=== PATIENT | female | born 1990 | race American Indian/Alaskan Native ===

== ENCOUNTER 2017-04-20 10:17 | Outpatient (CLI) | payer OTHER, MEDICAID ==
[2017-04-20] MEDS ORDERED: LACTATED RINGERS 500 ML IV ONE (11:30)
[2017-04-20] MEDS ORDERED: MORPHINE IV ONE (11:36)
[2017-04-20 11:40] LABS: Bilirubin,Urine NEG (Negative); Blood,Urine NEG (Negative); Ketones,Urine 20 mg/dL (Negative); Leukocyte Esterase,Urine TR (Negative); Mucus,Urine 2+ /HPF; Nitrite,Urine NEG (Negative); Urobilinogen,Urine < 2.0 mg/dL (<2.0)
== END 2017-04-20 13:06 | disposition home or self-care (01) ==
LOC: TRG 10:17
PROVIDERS: ATTEND Obstetrics & Gynecology
DX: O47.03 False labor before 37 completed weeks of gestation, third trimester (principal); Z3A.33 33 weeks gestation of pregnancy
CPT/HCPCS: 81001; J2270; J7120

== ENCOUNTER 2017-04-25 13:10 | Outpatient (CLI) | payer OTHER, MEDICAID ==
[2017-04-25] MEDS ORDERED: LACTATED RINGERS 500 ML IV ONE (13:44)
[2017-04-26 01:05] VITALS: BP 109/54
--- NOTE | 2017-04-26 08:20 | Ultrasound Report ---
ULTRASOUND BIOPHYSICAL PROFILE: History: well being Technique: Transabdominal ultrasound with Doppler interrogation. BABY A 2 - breathing movements 2 - movements 2 - posture and tone 2 - Qualitative amniotic fluid volume 8 - TOTAL SCORE OF POSSIBLE 8 Heart Rate (bpm) 135
--- NOTE | 2017-04-26 08:20 | Ultrasound Report ---
ULTRASOUND BIOPHYSICAL PROFILE: History: well being Technique: Transabdominal ultrasound with Doppler interrogation. BABY B 2 - breathing movements 2 - movements 2 - posture and tone 2 - Qualitative amniotic fluid volume 8 - TOTAL SCORE OF POSSIBLE 8 Heart Rate (bpm) 121
== END 2017-04-25 16:35 | disposition home or self-care (01) ==
LOC: TRG 13:10
PROVIDERS: ATTEND Obstetrics & Gynecology
DX: O47.03 False labor before 37 completed weeks of gestation, third trimester (principal); Z3A.33 33 weeks gestation of pregnancy
CPT/HCPCS: 76819

== ENCOUNTER 2017-05-08 19:23 | Outpatient (CLI) | payer OTHER, MEDICAID ==
[2017-05-08] MEDS ORDERED: TYLENOL PO ONE (20:32)
[2017-05-08 21:06] LABS: Basophils % (Auto) 0.4 % (0.0-1.8); Eosinophils % (Auto) 4.3 % (0.0-4.3); Hematocrit 35.5 % (30.3-42.9); Hemoglobin 12.1 gm/dl (10.1-14.3); Mean Corpuscular HGB Conc 34 % (30-34); Mean Corpuscular Hemoglobin 31 pg (28-32); Mean Corpuscular Volume 91 fl (79-97); Platelet Count 196 K/mm3 (140-440); Red Blood Count 3.89 M/mm3 (3.65-5.03); Red Cell Distribution Width 13.4 % (13.2-15.2); White Blood Count 9.9 K/mm3 (4.5-11.0)
[2017-05-08 21:21] LABS: Alanine Aminotransferase 9 units/L (7-56); Albumin 2.7 g/dL (3.9-5); Alkaline Phosphatase 132 units/L (35-129); Anion Gap 17 mmol/L; Blood Urea Nitrogen 3 mg/dL (7-17); Calcium 9.1 mg/dL (8.4-10.2); Carbon Dioxide 20 mmol/L (22-30); Chloride 103.6 mmol/L (98-107); Glucose 80 mg/dL (65-100); Potassium 3.7 mmol/L (3.6-5.0); Sodium 137 mmol/L (137-145); Total Protein 5.3 g/dL (6.3-8.2)
[2017-05-08 22:24] LABS: Bacteria,Urine 1+ /HPF (Negative); Bilirubin,Urine NEG (Negative); Blood,Urine NEG (Negative); Ketones,Urine 20 mg/dL (Negative); Leukocyte Esterase,Urine TR (Negative); Mucus,Urine FEW /HPF; Nitrite,Urine NEG (Negative); Urobilinogen,Urine < 2.0 mg/dL (<2.0)
--- NOTE | 2017-05-09 00:56 | Event Note ---
Date: 05/08/17 27 year old female at 35 weeks, 6 days gestation with twin presented to L&D triage complaining of headache after she took her new BP pill this afternoon. Patient states she was prescribed the medication for hypertension last week but did not take the first dose until this afternoon. Patient states she does not know the name of the medication. Patient states that she felt a headache about an hour after taking the medication. She states she has not taken any Tylenol for the headache yet. Patient denies visual disturbance, nausea or vomiting, abdominal or epigastric pain, edema, or any other symptoms. She reports both babies are moving well. She denies contractions, leaking of fluid or vaginal bleeding. She denies falls or abdominal trauma. Patient is well appearing, A&O, NAD. Afebrile. VSS. Preeclamptic labs negative. Abdomen soft, nontender, gravid. Reactive NST for baby A and reactive NST for baby B. No contractions noted or palpated. Cervix closed and thick. Patient was given Tylenol po while in triage and she states her headache has resolved. Patient was reassured, advised to rest at home, advised to take medications as prescribed, and advised to follow up with [facility] tomorrow. Warning signs of late and BP warning signs discussed. Advised patient to pay close attention to movements and to come in immediately if she is not getting adequate movements during her counts.
[2017-05-09 01:12] VITALS: BP 111/58
== END 2017-05-09 01:30 | disposition home or self-care (01) ==
LOC: TRG 19:23
PROVIDERS: ATTEND Obstetrics & Gynecology
DX: O30.003 Twin pregnancy, unspecified number of placenta and unspecified number of amniotic sacs, third trimester (principal); O26.893 Other specified pregnancy related conditions, third trimester; R51 Headache; Z3A.35 35 weeks gestation of pregnancy
CPT/HCPCS: 36415; 80053; 81001; 85025